=== PATIENT | male | born 1970 | race American Indian/Alaskan Native ===

== ENCOUNTER 2016-08-06 15:01 | Outpatient (CLI) | payer BC ==
--- NOTE | 2016-08-07 10:44 | Vascular Lab Report ---
Right Lower Extremity Venous Duplex Study: Reason for Exam: Pain and swelling of the right lower extremity. Comments on the Right: Occlusive deep venous thrombus noted in the femoral vein.. The remaining veins visualized are freely compressible without evidence of internal echogenicity. Spontaneous and phasic flow is present proximally. Comments on the Left: A limited duplex study was done of the proximal veins of the left lower extremity. All veins visualized are freely compressible without evidence of internal echogenicity. Flow is spontaneous and phasic throughout. No evidence of acute or chronic thrombus is seen in any of the vessels visualized. Impression: Deep venous thrombosis in the right lower extremity.
== END 2016-08-06 15:02 | disposition home or self-care (01) ==
LOC: VAS 15:01
PROVIDERS: ATTEND Nurse Practitioner
DX: I80.232 Phlebitis and thrombophlebitis of left tibial vein (principal)

== ENCOUNTER 2016-11-22 14:40 | Outpatient (CLI) | payer BC ==
--- NOTE | 2016-11-22 15:57 | Vascular Lab Report ---
Right Lower Extremity Venous Duplex Study: Reason for Exam: History of right leg DVT. Comments on the Right: Chronic nonocclusive deep venous thrombosis is noted in the popliteal and femoral veins.. The remaining veins visualized are freely compressible without evidence of internal echogenicity. Spontaneous and phasic flow is present proximally. Comments on the Left: A limited duplex study was done of the proximal veins of the left lower extremity. All veins visualized are freely compressible without evidence of internal echogenicity. Flow is spontaneous and phasic throughout. No evidence of acute or chronic thrombus is seen in any of the vessels visualized. Impression: Chronic deep venous thrombosis of the right lower extremity.
== END 2016-11-22 14:41 | disposition home or self-care (01) ==
LOC: VAS 14:40
PROVIDERS: ATTEND Radiology Diagnostic Radiology
DX: I80.11 Phlebitis and thrombophlebitis of right femoral vein (principal); I80.221 Phlebitis and thrombophlebitis of right popliteal vein

== ENCOUNTER 2017-02-19 14:33 | Outpatient (CLI) | payer BC ==
--- NOTE | 2017-02-19 16:51 | XRay Report ---
KUB: Phlebitis, IVC filter placement. An IVC filter is present to the right of the spine with its midpoint at the L2-3 interspace. It is normally oriented. No other findings noted.
--- NOTE | 2017-02-20 08:31 | Vascular Lab Report ---
Right Lower Extremity Venous Duplex Study: Reason for Exam: History of DVT . Comments on the Right: Chronic nonocclusive thrombus is noted in the popliteal and femoral veins.. The remaining veins visualized are freely compressible without evidence of internal echogenicity. Spontaneous and phasic flow is present proximally. Comments on the Left: A limited duplex study was done of the proximal veins of the left lower extremity. All veins visualized are freely compressible without evidence of internal echogenicity. Flow is spontaneous and phasic throughout. No evidence of acute or chronic thrombus is seen in any of the vessels visualized. Impression: Chronic deep venous thrombosis in the right lower extremity.
== END 2017-02-19 14:34 | disposition home or self-care (01) ==
LOC: VAS 14:33
PROVIDERS: ATTEND Radiology Diagnostic Radiology
DX: I82.531 Chronic embolism and thrombosis of right popliteal vein (principal); I82.511 Chronic embolism and thrombosis of right femoral vein; I10 Essential (primary) hypertension
CPT/HCPCS: 74000

== ENCOUNTER 2017-03-18 09:00 | Emergency (ER) | payer BC ==
[2017-03-18 10:26] LABS: Anion Gap 17 mmol/L; Blood Urea Nitrogen 16 mg/dL (9-20); Calcium 9.2 mg/dL (8.4-10.2); Carbon Dioxide 26 mmol/L (22-30); Chloride 99.3 mmol/L (98-107); Glucose 107 mg/dL (75-100); Potassium 3.4 mmol/L (3.6-5.0); Sodium 139 mmol/L (137-145)
--- NOTE | 2017-03-18 10:30 | Emergency Department Report ---
HPI - General Chief Complaint: Nosebleed Time Seen by Provider: 03/18/17 10:29 - HPI HPI: This is a 46 year-old male presents to the emergency department with complaint of a nosebleed that has been going on consistently since about 4:30 in the morning. He has been packing his nose with tissue but when he pulls the tissue out large clots will come out. The patient is currently on some relative secondary to a right lower extremity DVT and he has a history of hypertension. He denies any trauma to the face or nose or anypain. He denies any pain, nausea, vomiting, fever, shortness of breath. He has not taken any medication for symptoms prior to presentation. No recent travel or sick contacts at home. ED Past Medical Hx - Past Medical History Previous Medical History?: Yes Hx Hypertension: Yes Additional medical history: DVT Rt leg - Surgical History Past Surgical History?: Yes Additional Surgical History: Rt lower leg - Social History Smoking Status: Never Smoker Substance Use Type: Alcohol, Prescribed - Medications Home Medications: Home Medications Medication Instructions Recorded Confirmed Last Taken Type Rivaroxaban [Xarelto] 15 mg PO BID #42 tablet 06/13/16 Unknown Rx Rivaroxaban [Xarelto] 20 mg PO QDAY #30 tab 06/13/16 Unknown Rx Cephalexin [Keflex] 500 mg PO Q8HR #15 cap 03/18/17 Unknown Rx ED Review of Systems ROS: Stated complaint: NOSE BLEED Other details as noted in HPI Comment: All other systems reviewed and negative Constitutional: denies: chills, fever Eyes: denies: eye pain, eye discharge, vision change ENT: epistaxis. denies: ear pain, throat pain Respiratory: denies: cough, shortness of breath, wheezing Cardiovascular: denies: chest pain, palpitations Gastrointestinal: denies: abdominal pain, nausea, diarrhea Genitourinary: denies: urgency, dysuria Musculoskeletal: denies: back pain, joint swelling, arthralgia Skin: denies: rash, lesions Neurological: denies: headache, weakness, paresthesias Physical Exam - Physical Exam Vital Signs: Vital Signs 03/18/17 09:22 Temperature 97.7 F Pulse Rate 72 Respiratory 18 Rate Blood Pressure 151/103 O2 Sat by Pulse 98 Oximetry Physical Exam: GENERAL: The patient is well-developed well-nourished. HENT: Normocephalic. Atraumatic. Patient has moist mucous membranes. Oropharynx is clear. There is mild to moderate oozing red blood seen to the right nasal passage. Patient has some external packing in place and when it was pulled there are moderate clots that come out first. No obvious source of the bleed. EYES: Extraocular motions are intact. Pupils equal reactive to light bilaterally. NECK: Supple. Trachea is midline. CHEST/LUNGS: Clear to auscultation. There is no respiratory distress noted. HEART/CARDIOVASCULAR: Regular. There is no tachycardia. There is no gallop rub or murmur. ABDOMEN: Abdomen is soft, nontender. SKIN: Skin is warm and dry. NEURO: The patient is awake, alert, and oriented. The patient is cooperative. The patient has no focal neurologic deficits. The patient has normal speech. MUSCULOSKELETAL: There is no tenderness or deformity. There is no limitation range of motion. There is no evidence of acute injury. ED Course Vital Signs 03/18/17 09:22 Temperature 97.7 F Pulse Rate 72 Respiratory 18 Rate Blood Pressure 151/103 O2 Sat by Pulse 98 Oximetry - Procedure Description Procedures done: Procedure: Insertion of right sided rapid Rhino nasal packing. Rapid Rhino inserted posteriorly and slightly superiorly until it was entirely within the nasal passage and the rapid Rhino and bulb were enlarged with a 5 mL injection. This will remain in place until follow-up with ENT. No obvious complications. ED Medical Decision Making - Lab Data Result diagrams: 03/18/17 09:54 03/18/17 09:54 - Medical Decision Making 46-year-old male on Xarelto presents with epistaxis since about 4:30 this morning. It appears to have improved greatly since it started this morning but there is still some oozing of blood. Labs are mostly unremarkable. He has a INR of 1.7 and is on Xarelto. The patient does not appear to be in any distress there is certainly a chance that the bleeding will return or worsen being on the blood thinner. For this reason both the patient and myself decided that nasal packing would be the best option. There was no complications with placing the rapid Rhino and the patient was placed on antibiotics for this foreign body insertion. He was given multiple referrals for otolaryngology and will follow-up with him in the next 24-48 hours or return to the emergency department for reevaluation. Vital signs stable including being afebrile. - Differential Diagnosis epistaxis, super therapeutic INR, trauma Critical Care Time: No Critical care attestation.: If time is entered above; I have spent that time in minutes in the direct care of this critically ill patient, excluding procedure time. ED Disposition Clinical Impression: Epistaxis, Hx of skilled nursing use of blood thinners Hypertension Qualifiers: Hypertension type: essential hypertension Qualified Code(s): I10 - Essential ( primary) hypertension Disposition: TO HOME OR SELFCARE Is pt being admited?: No Condition: Stable Instructions: Epistaxis (ED), Hypertension (ED) Additional Instructions: Please follow up with a ENT also known as otolaryngology in the next 1-2 days. Keep the nasal packing in place until that time. Return to the emergency department if there is any worsening other symptoms including bleeding despite packing or URI unable to get in to see a ENT within a reasonable amount of time. Prescriptions: Cephalexin [Keflex] 500 mg PO Q8HR #15 cap Referrals: ISRA RIGGINS MD [Primary Care Provider] - ELISA LOWRY MD [Staff Physician] - ODALIS LAGUNA MD [Staff Physician] - KASI QUINTERO MD [Staff Physician] - NUVIA JENKINS MD [Referring] - KARLI Forms: Work/School Release Form(ED) Time of Disposition: 12:10
[2017-03-18 10:41] LABS: Basophils % (Auto) 1.3 % (0.0-1.8); Eosinophils % (Auto) 2.2 % (0.0-4.3); Hematocrit 43.8 % (35.5-45.6); Hemoglobin 14.9 gm/dl (11.8-15.2); Mean Corpuscular HGB Conc 34 % (32-34); Mean Corpuscular Hemoglobin 31 pg (28-32); Mean Corpuscular Volume 92 fl (84-94); Platelet Count 219 K/mm3 (140-440); Red Blood Count 4.79 M/mm3 (3.65-5.03); Red Cell Distribution Width 13.2 % (13.2-15.2); White Blood Count 4.7 K/mm3 (4.5-11.0)
[2017-03-18 10:51] LABS: INR 1.77 (0.87-1.13)
[2017-03-18 10:52] LABS: Partial Thromboplastin Time 32.2 Sec. (24.2-36.6)
[2017-03-18 10:57] VITALS: BP 152/96
[2017-03-18] MEDS ORDERED: AFRIN NS ONE (11:20)
== END 2017-03-18 12:17 | disposition home or self-care (01) ==
LOC: ED 09:00
DX: R04.0 Epistaxis (principal); I10 Essential (primary) hypertension
CPT/HCPCS: 36415; 80048; 85025; 85610; 85730; 99283